=== PATIENT | female | born 1955 | race Asian ===

== ENCOUNTER 2018-01-16 14:19 | Emergency (ER) | payer OTHER, SELFPAY ==
[2018-01-16 14:24] VITALS: BP 104/57; PULSE 83; RESP 14; TEMP 36.3; O2SAT 100; BMI 17.3
[2018-01-16 16:55] VITALS: BP 106/56; PULSE 73; RESP 16; TEMP 36.8; O2SAT 100
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
[2018-01-16 18:30] VITALS: BP 98/55; PULSE 68; O2SAT 100
[2018-01-16] MEDS: CYCLOBENZAPRINE 5 MG TABLET PO (18:31)
[2018-01-16 18:38] LABS: Add Manual Diff / Slide Review NO; Basophils Percent Auto 0.6 % (0-2); Eosinophils Percent Auto 0.1 % (2-4); Hematocrit 29.4 % (36-46); Hemoglobin 9.3 g/dL (12.0-16.0); Lymphocytes Percent Auto 4.6 % (25-40); Mean Corpuscular HGB Conc 31.7 % (30-36); Mean Corpuscular Hemoglobin 29.8 PG (26-34); Monocytes Percent Auto 4.6 % (3-14); Neutrophils Absolute Auto 5400 /uL (3000-5900); Neutrophils Percent Auto 90.1 % (50-75); Platelet Count 259 X10^3/uL (150-400); Red Blood Cell Count 3.13 X10^6/uL (4.0-5.2); Red Cell Distribution Width 15.9 % (11.6-14.8)
[2018-01-16 18:49] LABS: Alanine Aminotransferase 35 IU/L (9-52); Albumin Globulin Ratio 1.2 (1.0-2.8); Alkaline Phosphatase 209 U/L (38-126); Aspartate Aminotransferase 28 IU/L (14-36); BUN Creatinine Ratio 22.5 (6-22); Bilirubin Total 0.4 mg/dL (0.2-1.3); Blood Urea Nitrogen 27 mg/dL (7-17); Calcium 9.1 mg/dL (8.4-10.2); Carbon Dioxide 28 mmol/L (22-32); Chloride 104 mmol/L (98-107); Estimated Glomerular Filt Rate 45.7 mL/min (>60); Globulin 3.4 g/dL (1.7-4.1); Glucose 105 mg/dL (80-110); HEMOLYSIS < 15 (0-50); Potassium 4.7 mmol/L (3.4-5.1); Sodium 142 mmol/L (137-145); Total Protein 7.4 g/dL (6.3-8.2)
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
[2018-01-16] MEDS: OXYCODONE/ACETAMINOPHEN 5/325 TABLET 1 TAB PO (19:57)
[2018-01-16 20:15] VITALS: BP 100/62; PULSE 59; O2SAT 100
== END 2018-01-16 20:32 | disposition home or self-care (01) ==
PROVIDERS: Emergency Provider Nurse Practitioner Family; Family Provider Internal Medicine; PCP Internal Medicine
DX: M54.9 Dorsalgia, unspecified (principal); M62.838 Other muscle spasm; D64.9 Anemia, unspecified; V43.53XA Car driver injured in collision with pick-up truck in traffic accident, initial encounter
CPT/HCPCS: 72040; 72072; 80053; 85025; 99283; 99284

== ENCOUNTER → 2020-08-04 08:39 | Outpatient (CLI) | payer OTHER, SELFPAY ==
[2020-08-04] MEDS: COVID-19 VACC #1, MRNA(MOD) 100 MCG/0.5 ML VIAL IM (08:47)
== END ==
PROVIDERS: Family Provider Internal Medicine; PCP Internal Medicine; Visit Provider Internal Medicine
DX: Z23 Encounter for immunization (principal)
CPT/HCPCS: 0011A; 91301

== ENCOUNTER → 2020-09-01 08:35 | Outpatient (CLI) | payer OTHER, SELFPAY ==
[2020-09-01] MEDS: COVID-19 VACC #2, MRNA(MOD) 100 MCG/0.5 ML VIAL IM (08:40)
== END ==
PROVIDERS: Family Provider Internal Medicine; PCP Internal Medicine; Visit Provider Internal Medicine
DX: Z23 Encounter for immunization (principal)
CPT/HCPCS: 0012A; 91301

== ENCOUNTER 2020-11-30 12:26 | Emergency (ER) | payer OTHER, SELFPAY ==
[2020-11-30 12:51] VITALS: BP 147/72; PULSE 70; RESP 14; TEMP 36.7; O2SAT 99; BMI 17.2
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
[2020-11-30 15:01] LABS: Bacteria Urine Occasional (0-1); Culture Indicated Urine Cult Not Indicated; Hyaline Casts Urine 10-30/LPF; Mucus Urine 1+ (Negative); RBC Urine 1-5/HPF (0-5/HPF); Squamous Epithelial Cell Urine 0-1 /HPF (0-5/HPF); WBC Urine 0-1/HPF (0-5/HPF)
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
[2020-11-30 16:28] VITALS: BP 114/58; PULSE 76; RESP 16; O2SAT 100
== END 2020-11-30 16:50 | disposition home or self-care (01) ==
PROVIDERS: Emergency Provider Emergency Medicine; Family Provider Internal Medicine; PCP Family Medicine
DX: H53.2 Diplopia (principal); M54.6 Pain in thoracic spine; V89.2XXA Person injured in unspecified motor-vehicle accident, traffic, initial encounter
CPT/HCPCS: 70450; 72125; 81003; 81015; 99284

== ENCOUNTER → 2022-08-14 11:58 | Outpatient (CLI) | payer MEDICARE, OTHER, SELFPAY ==
--- NOTE | 2022-08-14 12:00 | DI.RAD.S_ITS ---
PROCEDURE: XR CHEST 2V INDICATIONS: Left sided chest pain with deep breath TECHNIQUE: 2 views of the chest were acquired. COMPARISON: None. FINDINGS: Surgical changes and devices: None. Lungs and pleura: Opacity laterally at the left lung base and minor opacity medially in the right infrahilar region. The upper lungs are clear. No pneumothorax. Mediastinum: Mediastinal contours are normal. Heart size is normal. Bones and chest wall: No suspicious bony abnormalities. Soft tissues appear unremarkable. IMPRESSION: 1. Bibasilar opacities, probably small pleural effusion on the left and minor airspace disease versus bronchial wall thickening in the right. Dictated by: Angelica Conte M.D. on 08/14/2022 at 12:31 Approved by: Angelica Conte M.D. on 08/14/2022 at 12:32
== END ==
PROVIDERS: Family Provider Internal Medicine; PCP Physician Assistant; Referring Provider Physician Assistant; Visit Provider Physician Assistant
DX: R07.1 Chest pain on breathing (principal)
CPT/HCPCS: 71046

== ENCOUNTER 2023-07-04 14:19 | Day surgery (SDC) | payer MEDICARE, OTHER, SELFPAY ==
--- NOTE | 2023-07-04 14:51 | P.HP_ITS ---
History of Present Illness History of Present Illness Date Patient Seen: 07/04/23 Chief complaint: Colonoscopy Narrative: History of colon polyps [facility] Social History Smoking Status: Former smoker Meds Home Medications and Allergies Home Medications Medication Instructions Recorded Confirmed Type omeprazole 20 mg tablet,delayed 20 mg PO BID ##0 04/13/12 01/16/18 History release ascorbic acid (vitamin C) 500 mg 500 mg PO DAILY 01/16/18 01/16/18 History tablet (Vitamin C) aspirin 81 mg tablet,delayed 81 mg PO DAILY 01/16/18 01/16/18 History release atorvastatin 10 mg tablet 10 mg PO DAILY 01/16/18 01/16/18 History azathioprine 50 mg tablet 50 mg PO BID 01/16/18 01/16/18 History cholecalciferol (vitamin D3) 50 2,000 unit PO DAILY 01/16/18 01/16/18 History mcg (2,000 unit) capsule (Vitamin D3) coenzyme Q10 100 mg capsule 300 mg PO DAILY 01/16/18 01/16/18 History (CoQ-10) cyanocobalamin (vitamin B-12) 1,000 mcg PO DAILY 01/16/18 01/16/18 History 1,000 mcg tablet (Vitamin B-12) cyclobenzaprine 5 mg tablet 5 mg PO TID PRN muscle spasm #30 01/16/18 Rx tabs duloxetine 60 mg capsule,delayed 60 mg PO DAILY 01/16/18 01/16/18 History release ferrous sulfate 325 mg (65 mg 325 mg PO BID 01/16/18 01/16/18 History iron) tablet ipratropium bromide 42 mcg (0.06 1 spray intranasal TID PRN as 01/16/18 01/16/18 History %) nasal spray directed krill oil 500 mg capsule 500 mg PO DAILY 01/16/18 01/16/18 History oxycodone 5 mg tablet 5 mg PO Q4-6H PRN pain #14 tabs 01/16/18 Rx prednisone 5 mg tablet 5 mg PO DAILY 01/16/18 01/16/18 History tacrolimus 1 mg capsule, 4 cap PO Q12H 01/16/18 01/16/18 History immediate-release hydrocodone 5 mg-acetaminophen 325 1 tab PO Q6H PRN pain #10 tabs 11/30/20 Rx mg tablet Allergies Allergy/AdvReac Type Severity Reaction Status Date / Time No Known Drug Allergies Allergy Verified 11/30/20 12:57 Exam Narrative Exam Narrative: Oropharynx free of lesions Chest clear to auscultation percussion Cardiac exam reveals no S3 or murmur Assessment & Plan Assessment & Plan narrative: History of colon polyps need for follow-up colonoscopy. Risks, benefits, alternatives have been explained.
--- NOTE | 2023-07-04 14:52 | PM.OP.COLON ---
Operative Date/Time/Diagnoses Date of procedure: 07/04/23 Pre-op diagnosis: See Procedure & Clinicians Study performed: Colonoscopy Indications: History of colon polyps Surgeon: Ray Mccracken Procedure Notes Procedure in detail: After informed consent was obtained the patient was placed in left lateral decubitus position. The video colonoscope was introduced the rectum slowly advanced to the cecum. Preparation was good. On slow withdrawal mucosa was carefully examined. The scope was removed. The patient tolerated procedure well. Blood loss none Complications none Sedation mac Findings 1. Normal colonoscopy to cecum other than scattered diverticulosis Funmilayo should have follow-up colonoscopy in 7 years
[2023-07-04 15:04] VITALS: BP 152/87; PULSE 76; RESP 16; TEMP 36.8; O2SAT 100
[2023-07-04] MEDS: LACTATED RINGERS 1,000 ML 100 ML IV (15:23)
[2023-07-04 15:29] VITALS: BMI 18.4
[2023-07-04 16:11] VITALS: BP 96/64; PULSE 74; RESP 16; TEMP 36.4; O2SAT 98
[2023-07-04 16:16] VITALS: BP 99/67; PULSE 74; RESP 15; O2SAT 99
[2023-07-04 16:21] VITALS: BP 115/71; PULSE 65; RESP 11; O2SAT 99
== END 2023-07-04 16:41 | disposition home or self-care (01) ==
PROVIDERS: Family Provider Internal Medicine; PCP Physician Assistant; Referring Provider Internal Medicine Gastroenterology; Visit Provider Internal Medicine Gastroenterology
PROC: 0DJD8ZZ Inspection of Lower Intestinal Tract, Via Natural or Artificial Opening Endoscopic (ICD-10-PCS; CPT 45378; principal; 2023-07-04 15:00)
DX: Z12.11 Encounter for screening for malignant neoplasm of colon (principal); Z86.010 Personal history of colon polyps; K57.30 Diverticulosis of large intestine without perforation or abscess without bleeding
CPT/HCPCS: G0105; J2704